=== PATIENT | male | born 1995 | race Two or more races ===

== ENCOUNTER 2017-01-29 17:10 | Emergency (ER) | payer OTHER ==
--- NOTE | 2017-01-29 17:37 | EDPHY ---
H & P Time Seen by Provider: 01/29/17 17:30 HPI/ROS: CHIEF COMPLAINT: Cough x5 years HISTORY OF PRESENT ILLNESS: 21-year-old male arrives via private vehicle complaining of 5 years of nonproductive cough, possible asthma diagnosis. He was seen [facility] today because he is returning to [facility] in a few days. He had a chest x-ray performed, was given DuoNeb treatment and referred to the ER. He has limited paperwork, has an x-ray report with him otherwise no other paperwork. He is complaining of dyspnea without chest pain. This has been ongoing issue for 5-6 years. Nonsmoker. No alcohol or drug use. No cocaine use. No personal or family history of thromboembolic disorder. PRIMARY CARE PROVIDER: [facility] REVIEW OF SYSTEMS: A ten point review of systems was performed and is negative with the exception of the items mentioned in the HPI PAST MEDICAL & SURGICAL HISTORY: Possible reactive airways disease diagnosis while in [facility] SOCIAL HISTORY: Nonsmoker no drug use no alcohol use PHYSICAL EXAM (Prior to examination, patient consented to physical exam, hands were washed and my usual and customary physical exam procedures followed) 1) GENERAL: Well-developed, well-nourished, alert and oriented. Appears to be in no acute distress. 2) HEAD: Normocephalic, atraumatic 3) HEENT: Pupils equal, round, reactive to light bilaterally. Sclera anicteric. Nasopharynx, oropharynx, clear, no lesions. Ears bilaterally with normal tympanic membranes. 4) NECK: Full range of motion, no meningeal signs. 5) LUNGS: Mild end-expiratory wheeze. Speaking full sentences. Clear auscultation bilaterally, no wheezes, no rhonchi, no retractions. 6) HEART: Regular rate and rhythm, no murmur, no heave, no gallop. 7) ABDOMEN: No guarding, no rebound, no focal tenderness, negative McBurney's, negative Leslie's, negative Rovsing's, negative peritoneal sign, 8) MUSCULOSKELETAL: Moving all extremities, no focal areas of tenderness, no obvious trauma. No peripheral edema or discoloration. 9) BACK: No CVA tenderness, no midline vertebral tenderness, no fluctuance, no step-off, no obvious trauma, no visual or palpable abnormality. 10) SKIN: No rash, no petechiae. 11) Psychiatric: Patient is oriented X 3, there is no agitation. DIFFERENTIAL DIAGNOSIS: In no particular include but limited to pulmonary embolus , infectious etiology, reactive airway disease, pneumothorax Smoking Status: Never smoked Constitutional: Initial Vital Signs Temperature (C) 36.9 C 01/29/17 17:17 Heart Rate 113 H 01/29/17 17:17 Respiratory Rate 16 01/29/17 17:17 Blood Pressure 142/81 H 01/29/17 17:17 O2 Sat (%) 98 01/29/17 17:17 O2 Delivery Mode Room Air Allergies/Adverse Reactions: kiwi Allergy (Verified 01/29/17 17:16) Home Medications: Medication Instructions Recorded AZITHROMYCIN [Z-PACK] 500 mg PO DAILY #1 packet 01/29/17 Albuterol [Proventil Inhaler HFA 1 - 2 puffs IH Q4PRN PRN #1 mdi 01/29/17 (*)] predniSONE [Prednisone] 20 mg PO DAILY #15 tablet 01/29/17 MDM/Departure - MDM Medications Given: Discontinued Medications Albuterol/Ipratropium (Duoneb) 3 ml IH EDNOW ONE Stop: 01/29/17 17:39 Last Admin: 01/29/17 18:00 Dose: 3 ml Prednisone (Prednisone) 60 mg PO EDNOW ONE Stop: 01/29/17 17:39 Last Admin: 01/29/17 18:00 Dose: 60 mg ED Course/Re-evaluation: 5:36 p.m.: I reviewed the chest x-ray results interpreted by obtained from [facility] today showing likely viral airways disease. No evidence of pneumothorax. I do not think that repeat chest x-ray is currently indicated. He is here in emergency department will be given further DuoNeb treatment, steroid as he notes that he did not receive steroid at [facility]. 6:47 p.m. patient re-evaluated with serial examinations. He remains tachycardic which I think is more likely secondary to his pre-hospital breathing treatment and breathing treatment provided him in the emergency department. Doubt pulmonary embolus. Doubt pneumothorax. I do not think that chest imaging indicated. Recommend follow up with pulmonology. Discussed case with secondary supervising physician Dr. Jason in the ER - Depart Disposition: Home, Routine, Self-Care Clinical Impression: Exacerbation of asthma Qualifiers: Asthma severity: mild Asthma persistence: intermittent Qualified Code(s): J45.21 - Mild intermittent asthma with (acute) exacerbation Condition: Good Instructions: Asthma (DC) Additional Instructions: Return to the emergency department if you develop worsening symptoms or new symptoms Prescriptions: Albuterol [Proventil Inhaler HFA (*)] 1 - 2 puffs IH Q4PRN PRN #1 mdi PRN Reason: Cough, Moderate AZITHROMYCIN [Z-PACK] 500 mg PO DAILY #1 packet predniSONE [Prednisone] 20 mg PO DAILY #15 tablet Referrals: Remington Mercado MD [Medical Doctor] - 5-7 days, call for appt. (Dr. Remington Mercado is a extrusion bender (lung doctor))
[2017-01-29] MEDS ORDERED: IPRATROPIUM/ALBUTEROL 3 ML DEYVIAL IH ONE (17:38)
[2017-01-29] MEDS ORDERED: predniSONE 20 MG TAB PO ONE (17:38)
[2017-01-29 19:40] VITALS: BP 129/75; PULSE 89; RESP 20; TEMP 97.7; O2SAT 95
== END 2017-01-29 19:37 | disposition home or self-care (01) ==
DX: J45.21 Mild intermittent asthma with (acute) exacerbation (principal)